=== PATIENT | female | born 1950 | race Caucasian/White ===

== ENCOUNTER → 2017-01-21 | Outpatient (CLI) | payer MEDICARE, OTHER | END | disposition home or self-care (01) | LOC: RADPV 10:24 | PROVIDERS: ATTEND Legal Medicine | DX: G45.8 Other transient cerebral ischemic attacks and related syndromes (principal) | CPT/HCPCS: 93880 ==

== ENCOUNTER 2017-12-04 12:28 | Emergency (ER) | payer MEDICARE, OTHER ==
[~2017-12-04] VITALS: Ht 167.6 cm; Wt 46.8 kg
[2017-12-04] MEDS ORDERED: GUAIF600 PO (12:49)
[2017-12-04] MEDS ORDERED: AUD NEB (12:49)
[2017-12-04 14:31] LABS: BASOPHILS % (AUTO) 0.6 % (0.0-2.0); EOSINOPHILS % (AUTO) 0.3 % (1.0-6.0); HEMATOCRIT 45.7 % (36-46); HEMOGLOBIN 15.2 g/dL (12.0-16.0); LYMPHOCYTES # (AUTO) 2.1 K/uL (1.0-4.8); LYMPHOCYTES % (AUTO) 24.1 % (22.0-44.0); MEAN CORPUSCULAR HEMOGLOBIN 30.1 pg (26.0-34.0); MEAN CORPUSCULAR HGB CONC 33.3 G/dL (31.0-37.0); MEAN CORPUSCULAR VOLUME 90 fL (80-100); MONOCYTES # (AUTO) 0.6 K/uL (0.1-1.0); MONOCYTES % (AUTO) 7.3 % (2.0-9.0); NEUTROPHILS % (AUTO) 67.7 % (40.0-70.0); PLATELET COUNT (AUTO) 264 K/uL (150-450); RED BLOOD CELL COUNT(AUTO) 5.06 MIL/uL (4.00-5.20); RED CELL DISTRIBUTION WIDTH 13.5 % (11.5-14.5)
[2017-12-04] MEDS ORDERED: ALBUTEROL SULFATE 5 MG/ML 20 ML NEB SOLN [BULK] NEB ONE (14:45)
[2017-12-04] MEDS ORDERED: PredniSONE 20 MG TABLET PO ONE (14:45)
[2017-12-04] MEDS ORDERED: SODIUM CHLORIDE 0.9% 1,000 ML IV ONE (14:45)
[2017-12-04] MEDS ORDERED: IPRATROPIUM BROMIDE 0.5 MG/2.5 ML NEB SOLUTION NEB ONE (14:45)
[2017-12-04 15:35] LABS: ANION GAP 6 mmol/L (8-16); CALCIUM, TOTAL 8.8 mg/dL (8.8-10.5); CARBON DIOXIDE 31 mmol/L (22-29); CHLORIDE 98 mmol/L (98-107); CREATININE 0.83 mg/dL (0.60-1.30); GLOMERULAR FILTR. RATE CALC > 60 mL/min (>60); GLUCOSE,RANDOM 90 mg/dL (70-110); POTASSIUM 3.8 mmol/L (3.5-5.1); SODIUM SERUM 135 mmol/L (136-145); UREA NITROGEN, BLOOD 9 mg/dL (7-18)
[2017-12-04 15:40] LABS: ALANINE AMINOTRANSFERASE 28 U/L (12-78); ALBUMIN 3.6 g/dL (3.4-5.0); ALKALINE PHOSPHATASE 63 U/L (46-116); ASPARTATE AMINOTRANSFERASE 30 U/L (15-37); BILIRUBIN,TOTAL 0.7 mg/dL (0.1-1.0); TOTAL PROTEIN, SERUM 7.6 g/dL (6.4-8.2)
[2017-12-04 15:54] LABS: B-TYPE NATRIURETIC PEPTIDE 25 pg/mL (0-100)
[2017-12-04] MEDS ORDERED: DOXYCYCLINE 100 MG CAPSULE PO ONE (17:30)
[2017-12-04] MEDS ORDERED: SODIUM CHLORIDE 0.9% 2,000 ML IV ONE (17:30)
[2017-12-04 19:18] VITALS: BP 118/65
== END 2017-12-04 19:29 | disposition home or self-care (01) ==
LOC: EMS 12:30
DX: J44.1 Chronic obstructive pulmonary disease with (acute) exacerbation (principal); E86.0 Dehydration; F17.210 Nicotine dependence, cigarettes, uncomplicated; F12.90 Cannabis use, unspecified, uncomplicated; Z88.8 Allergy status to other drugs, medicaments and biological substances
CPT/HCPCS: 36415; 71046; 80053; 83880; 84484; 85025; 93005; 94644; 96360; 96361; 99285; 99406; J7030; J7512

== ENCOUNTER → 2017-12-23 | Outpatient (CLI) | payer MEDICARE, OTHER ==
[~2017-12-23] VITALS: Ht 165.1 cm; Wt 48.5 kg
[~2017-12-23] MED LIST: AUD NEB; GUAIF600 PO
[2017-12-23 13:07] VITALS: BP 128/56
== END | disposition home or self-care (01) ==
LOC: SRCNTR 13:03
PROVIDERS: ATTEND Internal Medicine
DX: J44.9 Chronic obstructive pulmonary disease, unspecified (principal); F17.200 Nicotine dependence, unspecified, uncomplicated
CPT/HCPCS: G0463

== ENCOUNTER → 2018-01-20 | Outpatient (CLI) | payer MEDICARE, OTHER ==
[~2018-01-20] MED LIST changes: -GUAIF600 PO
== END | disposition home or self-care (01) ==
LOC: RESP 11:33
PROVIDERS: ATTEND Internal Medicine
DX: J43.9 Emphysema, unspecified (principal); J42 Unspecified chronic bronchitis
CPT/HCPCS: 71250; 94010; 94726; 94727; 94729

== ENCOUNTER → 2018-02-11 | Outpatient (CLI) | payer MEDICARE, OTHER ==
[~2018-02-11] MED LIST changes: +REGADENOSON 0.4 MG/5 ML PF SYRINGE IVP ONE; +SESTAMIBI TC99M/UD ISOTOPE 1 EA INJ INJ ONE
== END | disposition home or self-care (01) ==
LOC: CARDMN 08:14
PROVIDERS: ATTEND Internal Medicine Cardiovascular Disease
DX: I25.10 Atherosclerotic heart disease of native coronary artery without angina pectoris (principal); I73.9 Peripheral vascular disease, unspecified; J44.9 Chronic obstructive pulmonary disease, unspecified
CPT/HCPCS: 78452; 93017; 93306; 93925; A9500; J2785

== ENCOUNTER → 2020-07-26 | Outpatient (CLI) | payer MEDICARE, OTHER ==
[~2020-07-26] MED LIST changes: -REGADENOSON 0.4 MG/5 ML PF SYRINGE IVP ONE; -SESTAMIBI TC99M/UD ISOTOPE 1 EA INJ INJ ONE
[2020-07-26 10:32] LABS: BASOPHILS % (AUTO) 0.9 % (0.0-2.0); EOSINOPHILS % (AUTO) 1.7 % (1.0-6.0); HEMATOCRIT 47.4 % (36-46); HEMOGLOBIN 15.5 g/dL (12.0-16.0); LYMPHOCYTES # (AUTO) 2.4 K/uL (1.0-4.8); LYMPHOCYTES % (AUTO) 38.1 % (22.0-44.0); MEAN CORPUSCULAR HEMOGLOBIN 30.9 pg (26.0-34.0); MEAN CORPUSCULAR HGB CONC 32.8 G/dL (31.0-37.0); MEAN CORPUSCULAR VOLUME 94 fL (80-100); MONOCYTES # (AUTO) 0.5 K/uL (0.1-1.0); MONOCYTES % (AUTO) 7.5 % (2.0-9.0); NEUTROPHILS # (AUTO) 3.3 K/uL (1.8-7.7); NEUTROPHILS % (AUTO) 51.8 % (40.0-70.0); PLATELET COUNT (AUTO) 259 K/uL (150-450); RED BLOOD CELL COUNT(AUTO) 5.03 MIL/uL (4.00-5.20); RED CELL DISTRIBUTION WIDTH 12.8 % (11.5-14.5)
[2020-07-26 10:49] LABS: HEMOGLOBIN A1C 5.5 % (3.8-5.6)
[2020-07-26 11:16] LABS: FOLATE SERUM 8.3 ng/mL (5.4-)
[2020-07-26 11:21] LABS: ALANINE AMINOTRANSFERASE 23 U/L (12-78); ALBUMIN 4.1 g/dL (3.4-5.0); ALKALINE PHOSPHATASE 46 U/L (46-116); ANION GAP 7 mmol/L (8-16); ASPARTATE AMINOTRANSFERASE 29 U/L (15-37); BILIRUBIN,TOTAL 0.6 mg/dL (0.1-1.0); CALCIUM, TOTAL 9.7 mg/dL (8.8-10.5); CARBON DIOXIDE 28 mmol/L (22-29); CHLORIDE 101 mmol/L (98-107); CHOL/HDL RATIO 3.4 (3.9-5.7); CHOLESTEROL 248 mg/dL (131-200); CREATININE 0.84 mg/dL (0.60-1.30); GLUCOSE,RANDOM 109 mg/dL (70-110); HDL CHOLESTEROL 73 mg/dL (40-60); LDL CHOL (CALC.) 147 mg/dL (0-130); POTASSIUM 5.4 mmol/L (3.5-5.1); SODIUM SERUM 136 mmol/L (136-145); THYROID STIMULATING HORMONE 5.97 uIU/mL (0.36-3.74); TOTAL PROTEIN, SERUM 7.7 g/dL (6.4-8.2); TRIGLYCERIDES 142 mg/dL (15-150); UREA NITROGEN, BLOOD 11 mg/dL (7-18)
[2020-07-26 11:27] LABS: GLOMERULAR FILTR. RATE CALC > 60 mL/min (>60)
== END | disposition home or self-care (01) ==
LOC: LABPV 09:00
PROVIDERS: ATTEND Legal Medicine
DX: E78.2 Mixed hyperlipidemia (principal); E03.9 Hypothyroidism, unspecified; J44.9 Chronic obstructive pulmonary disease, unspecified; E55.9 Vitamin D deficiency, unspecified; Z88.8 Allergy status to other drugs, medicaments and biological substances; F17.210 Nicotine dependence, cigarettes, uncomplicated
CPT/HCPCS: 82306; 82607; 82746; 83036; 84443

== ENCOUNTER → 2020-07-27 | Outpatient (CLI) | payer MEDICARE, OTHER ==
[~2020-07-27] MED LIST changes: +GADOBUTROL 1 MMOL/ML 10 ML VIAL IVP ONE
== END | disposition home or self-care (01) ==
LOC: MSR 09:42
PROVIDERS: ATTEND Legal Medicine
DX: I65.23 Occlusion and stenosis of bilateral carotid arteries (principal); G93.40 Encephalopathy, unspecified; I67.82 Cerebral ischemia
CPT/HCPCS: 70553; 93880; A9585

== ENCOUNTER 2023-03-10 01:40 | Emergency (ER) | payer MEDICARE, OTHER ==
[~2023-03-10] VITALS: Ht 157.5 cm; Wt 42.0 kg
[~2023-03-10 01:40] MED LIST changes: -GADOBUTROL 1 MMOL/ML 10 ML VIAL IVP ONE
[2023-03-10 01:42] VITALS: BP 110/67
[2023-03-10] MEDS ORDERED: IPRATROPIUM BROMIDE 0.5 MG/2.5 ML NEB SOLUTION NEB ONE (02:30)
[2023-03-10] MEDS ORDERED: ALBUTEROL SULFATE 2.5 MG/0.5 ML NEB SOLUTION NEB ONE (02:30)
[2023-03-10] MEDS ORDERED: DEXAMETHASONE SOD PHOS 4 MG/ML 5 ML VIAL IM ONE (02:45)
== END 2023-03-10 04:11 | disposition home or self-care (01) ==
LOC: EMS 01:41
DX: J44.1 Chronic obstructive pulmonary disease with (acute) exacerbation (principal); I25.10 Atherosclerotic heart disease of native coronary artery without angina pectoris; I10 Essential (primary) hypertension; F17.210 Nicotine dependence, cigarettes, uncomplicated; F12.90 Cannabis use, unspecified, uncomplicated; Z90.710 Acquired absence of both cervix and uterus; Z88.2 Allergy status to sulfonamides
CPT/HCPCS: 99283; 71045; 94640; 96372; J1100; J7613

== ENCOUNTER 2023-03-11 03:46 | Inpatient (IN) | payer MEDICARE, OTHER ==
[~2023-03-11] VITALS: Ht 160 cm; Wt 37.0 kg
[2023-03-11] MEDS ORDERED: IPRATROPIUM BROMIDE 0.5 MG/2.5 ML NEB SOLUTION NEB ONE (04:00)
[2023-03-11] MEDS ORDERED: MethylPREDNISolone SOD SUCC 125 MG/2 ML VIAL IVP ONE (04:00)
[2023-03-11] MEDS ORDERED: LEVALBUTEROL HCL 1.25 MG/0.5 ML NEB SOLUTION NEB ONE (04:00)
[2023-03-11] MEDS ORDERED: LORazepam 2 MG/ML VIAL IVP ONE (04:00)
[2023-03-11] MEDS ORDERED: SODIUM CHLORIDE 0.9% 10 ML ONE (04:01)
[2023-03-11 04:05] LABS: BASOPHILS % (AUTO) 0.1 % (0.0-2.0); EOSINOPHILS % (AUTO) 0.1 % (1.0-6.0); HEMOGLOBIN 13.4 g/dL (12.0-16.0); LYMPHOCYTES # (AUTO) 0.8 K/uL (1.0-4.8); LYMPHOCYTES % (AUTO) 10.1 % (22.0-44.0); MEAN CORPUSCULAR HEMOGLOBIN 31.9 pg (26.0-34.0); MEAN CORPUSCULAR HGB CONC 33.4 G/dL (31.0-37.0); MEAN CORPUSCULAR VOLUME 95 fL (80-100); MONOCYTES # (AUTO) 1.2 K/uL (0.1-1.0); MONOCYTES % (AUTO) 15.3 % (2.0-9.0); NEUTROPHILS # (AUTO) 6.1 K/uL (1.8-7.7); NEUTROPHILS % (AUTO) 74.4 % (40.0-70.0); PLATELET COUNT (AUTO) 322 K/uL (150-450); RED CELL DISTRIBUTION WIDTH 12.8 % (11.5-14.5)
[2023-03-11 04:14] LABS: ANION GAP 10 mmol/L (8-16); CALCIUM, TOTAL 9.3 mg/dL (8.8-10.5); CARBON DIOXIDE 27 mmol/L (22-29); CHLORIDE 99 mmol/L (98-107); CREATININE 0.79 mg/dL (0.60-1.30); GLOMERULAR FILTR. RATE CALC > 60 mL/min (>60); GLUCOSE,RANDOM 218 mg/dL (70-110); POTASSIUM 3.7 mmol/L (3.5-5.1); SODIUM SERUM 136 mmol/L (136-145); UREA NITROGEN, BLOOD 19 mg/dL (7-18)
[2023-03-11 04:18] LABS: PROTHROMBIN TIME 10.3 SEC (9.4-11.6)
[2023-03-11 04:22] LABS: ALANINE AMINOTRANSFERASE 49 U/L (12-78); ALBUMIN 3.4 g/dL (3.4-5.0); ALKALINE PHOSPHATASE 85 U/L (46-116); ASPARTATE AMINOTRANSFERASE 39 U/L (15-37); BILIRUBIN,TOTAL 0.6 mg/dL (0.1-1.0); CREATINE KINASE, TOTAL ONLY 265 U/L (26-192); TOTAL PROTEIN, SERUM 7.7 g/dL (6.4-8.2)
[2023-03-11 04:26] LABS: B-TYPE NATRIURETIC PEPTIDE 199 pg/mL (0-100)
[2023-03-11] MEDS ORDERED: ONDANSETRON HCL 4 MG/2 ML VIAL IVP PRN (05:00)
[2023-03-11] MEDS ORDERED: MORPHINE SULFATE 2 MG/ML SYRINGE IVP PRN (05:00)
[2023-03-11] MEDS ORDERED: ACETAMINOPHEN 325 MG TABLET PO PRN ×2 (05:00)
[2023-03-11] MEDS ORDERED: IPRATROPIUM BROMIDE 0.5 MG/2.5 ML NEB SOLUTION NEB PRN ×3 (05:00)
[2023-03-11] MEDS ORDERED: ALBUTEROL SULFATE 2.5 MG/0.5 ML NEB SOLUTION NEB PRN ×3 (05:00)
[2023-03-11] MEDS ORDERED: 0.9% SODIUM CHLORIDE 10 ML SYRINGE IVP PRN (05:00)
[2023-03-11 05:24] LABS: ABG CARBOXYHEMOGLOBIN 0.8 % (0.0-1.5); ABG HCO3 24.2 mmol/L (22.0-26.0); ABG METHEMOGLOBIN 0.4 % (0.0-1.5); ABG OXYHEMOGLOBIN 93.9 % (94.0-100.0); ABG PCO2 59 mmHg (35-45); ABG PH 7.287 (7.35-7.450); ABG TOTAL HEMOGLOBIN 13.6 G/dL (12.0-18.0); PO2, ARTERIAL BG 77.7 mmHg (75.0-83.0); SOURCE, BLOOD GAS ARTERIAL; TEMPERATURE, FAHRENHEIT, BG 97.2 FAHREN (96.0-98.6)
[2023-03-11 05:43] LABS: ABG A-A DIFF O2 82.2 mmHg (10-20.0); O2 DEVICE,BLOOD GAS NASAL CANNULA (ROOM AIR); SITE, BLOOD GAS LFT RADIAL
[2023-03-11 06:05] LABS: COVID AG,FIA SOURCE NASAL SWAB
[2023-03-11 06:34] LABS: INFLUENZA TYPE A NEGATIVE FOR TYPE A (NEGATIVE); INFLUENZA TYPE B NEGATIVE FOR TYPE B (NEGATIVE)
[2023-03-11] MEDS ORDERED: SODIUM CHLORIDE 0.9% 250 ML IV ONE (07:55)
[2023-03-11] MEDS: HEPARIN SODIUM,PORCINE 5,000 UNITS/ML VIAL SQ SCH ×2 (07:56→15:00)
[2023-03-11] MEDS: DOCUSATE SODIUM 100 MG CAPSULE PO SCH ×2 (07:59→21:00)
[2023-03-11 08:00] VITALS: BP 133/67
[2023-03-11] MEDS: AZITHROMYCIN 500 MG/NS 250 ML IV SCH (08:01)
[2023-03-11] MEDS: DEXAMETHASONE SOD PHOS 4 MG/ML VIAL IVP SCH ×2 (08:02→15:00)
[2023-03-11] MEDS: ETHYL ALCOHOL 62% ANTISEPTIC NASAL SANITIZER 0.6 ML AMPUL NASAL SCH ×2 (08:02→21:00)
[2023-03-11] MEDS ORDERED: LORazepam 2 MG/ML VIAL IVP PRN (10:00)
[2023-03-11 12:00] VITALS: BP 123/81
[2023-03-11] MEDS: MORPHINE SULFATE 2 MG/ML SYRINGE IVP PRN ×2 (12:16→17:50)
[2023-03-11] MEDS: LORazepam 2 MG/ML VIAL IVP PRN ×2 (14:13→21:09)
[2023-03-11 16:00] VITALS: BP 109/64
[2023-03-11 20:00] VITALS: BP 108/64
[2023-03-12] VITALS: BP 84/57
[2023-03-12] MEDS: DEXAMETHASONE SOD PHOS 4 MG/ML VIAL IVP SCH
[2023-03-12 04:00] VITALS: BP 84/56
[2023-03-12] MEDS: LORazepam 2 MG/ML VIAL IVP PRN ×2 (04:20→12:16)
[2023-03-12] MEDS: AZITHROMYCIN 500 MG/NS 250 ML IV SCH (06:00)
[2023-03-12 08:00] VITALS: BP 97/50
[2023-03-12] MEDS: HEPARIN SODIUM,PORCINE 5,000 UNITS/ML VIAL SQ SCH ×2 (08:00)
[2023-03-12] MEDS: DOCUSATE SODIUM 100 MG CAPSULE PO SCH (08:02)
[2023-03-12] MEDS: ETHYL ALCOHOL 62% ANTISEPTIC NASAL SANITIZER 0.6 ML AMPUL NASAL SCH (08:02)
[2023-03-12] MEDS: MORPHINE SULFATE 2 MG/ML SYRINGE IVP PRN (08:28)
[2023-03-12 12:00] VITALS: BP 97/54
== END 2023-03-12 13:45 | disposition hospice, home (50) | DRG 189 ==
LOC: EMS 03:46 → ICU 05:00
PROVIDERS: ADMIT Internal Medicine; ATTEND Internal Medicine
DX: J96.02 Acute respiratory failure with hypercapnia (principal); E43 Unspecified severe protein-calorie malnutrition; R64 Cachexia; Z68.1 Body mass index [BMI] 19.9 or less, adult; M81.0 Age-related osteoporosis without current pathological fracture; J43.9 Emphysema, unspecified; I10 Essential (primary) hypertension; I25.10 Atherosclerotic heart disease of native coronary artery without angina pectoris; Z66 Do not resuscitate; R74.8 Abnormal levels of other serum enzymes; Z20.822 Contact with and (suspected) exposure to COVID-19; J96.01 Acute respiratory failure with hypoxia; Z82.5 Family history of asthma and other chronic lower respiratory diseases; Z87.891 Personal history of nicotine dependence; Z86.73 Personal history of transient ischemic attack (TIA), and cerebral infarction without residual deficits; Z85.118 Personal history of other malignant neoplasm of bronchus and lung; Z90.710 Acquired absence of both cervix and uterus
CPT/HCPCS: 36600; 71045; 80053; 82550; 82805; 83605; 83880; 84145; 84484; 85025; 85610; 85730; 87040; 87081; 87804; 93005; 94640; 94644; 94660; 99291; G0378; J0456; J1100; J2060; J2270; J2930; J7050; 36415-L1; 36415-TC; J7613; Z7610